=== PATIENT | male | born 1960 | race Caucasian/White ===

== ENCOUNTER 2022-06-11 01:44 | Day surgery (SDC) | payer BC, SELFPAY ==
--- NOTE | 2022-05-09 17:05 | SUR.PREOP ---
Addendum entered by Hailey Franklin RN 06/07/22 13:32: New time and date given to patient Tello and all instructions repeated since case was rescheduled. Patient states Dr Perry had him stop meloxicam 06/03/22 and he will stop multivitamins 06/08/22 aware day of surgery to stop liquids at 8am and will be notified 06/08 in afternoon if time changes. Original Note: Report to the Outpatient Waiting Room, entrance under the [facility] located off [facility], at time 0600 on date 05/14/22. OR Time: 0730. - You and your visitor will be asked a series of questions to screen for COVID 19 for your protection. - Only one visitor is allowed at this time. - The patient visitor is requested to leave or wait in car when not with patient. - A mask is required within the hospital. Patients may have clear liquids (water, carbonated beverages, clear teas, apple juice) until 3 hours prior to surgery with a maximum of 20 ounces. - NO CLEAR LIQUIDS AFTER 0430 - No food from midnight until time of surgery - Infants may have breast milk until 4 hours before surgery, infant formula 6 hours prior to surgery. - Children will be allowed to drink immediately following surgery. If applicable, please bring a bottle or sippy cup to assist with drinking. Juice, water, soda, and popsicles are readily available. For infants on formula, please bring formula the day of surgery. Pacifiers are allowed. Take the following medications with a SIP of water the morning of surgery: OKAY TO USE EYE DROPS PRESCRIBED Medications to discontinue per physician PT STOPPED MELOXICAM 05/06/[address] SARMIENTO, STOP MULTIVITAMIN & SUPPLEMENTS 05/11/22 Please no make-up, nail bulgarian, hairspray, perfume, deodorant, or body powder the day of surgery. No jewelry (including any body piercings) or valuables the day of surgery, leave them at home. Please take a shower or bath the night before, or the morning of, surgery with an antibacterial soap. Wear comfortable, loose fitting clothing. Children are encouraged to wear pajamas. - Jewelry must be removed prior to entering the operating room. Rings and piercings that are not removed may be cut off. - The hospital will not accept responsibility for valuables. - Please leave all valuables, including medications, at home the day of surgery. If you are going home after surgery, a licensed truck driver supervisor must drive you home. - NO public transportation without another adult. - We recommend that an adult stay with you for 24 hours following discharge. - We also recommend that you do not drive, make important decision, drink alcoholic beverages, or take any drugs that were not prescribed by your health care provider for at least 24 hours after your discharge time. For Pediatric surgeries, we recommend two adults accompany the child home (only one inside the building at this time). Follow any additional instructions given to you from your surgeon. If you or anyone in your household have experienced Covid symptoms in the past week, please notify your surgeon or the nurse liaison at the phone number below for possible testing. Telephone instructions given to TELLO NAVA and asked if any additional questions and then verbalized understanding. Patient advised to call surgeon office or pre surgery nurse liaison [phone] if any additional questions.
[2022-05-09 17:14] VITALS: BMI 29.0
[2022-06-07 13:14] VITALS: BMI 28.7
[2022-06-11] VITALS (9 sets, daily range): BP systolic 150–183; BP diastolic 88–102; PULSE 51–82; RESP 12–16; TEMP 36.4–36.5; O2SAT 100
[2022-06-11] MEDS: ACETAMINOPHEN 500 MG TABLET 1000 MG PO (09:24)
--- NOTE | 2022-06-11 09:49 | WPDANESEPPF ---
Anes - Initial Pre Proc Eval Procedure: Operation Date: 06/11/22 11:00 Proposed Procedures p Bilateral Tonsillectomy - Roel Amador MD Date/Time: 06/11/22 09:49 Surgeon: Roel Amador MD Pre Op Diagnosis: Chronic Tonsillitis Patient Data Age: 62 Gender: M Height: 1.78 m Weight: 90.9 kg Allergies Allergy/AdvReac Type Severity Reaction Status Date / Time No Known Allergies Allergy Mild Verified 06/07/22 13:14 Home Medications Medication Instructions Recorded Confirmed Type brinzolamide 1 %-brimonidine 0.2 % 1 drp EACH EYE BID 05/09/22 06/07/22 History eye drops,suspension (Simbrinza) latanoprost 0.005 % eye drops 1 drp EACH EYE HS 05/09/22 06/07/22 History meloxicam 7.5 mg tablet 7.5 mg PO DAILY 05/09/22 06/07/22 History multivitamin 1 tablet PO DAILY 05/09/22 06/07/22 History omeprazole 20 mg capsule,delayed 20 mg PO DAILY 05/09/22 06/07/22 History release tamsulosin 0.4 mg capsule 0.4 mg PO DAILY 05/09/22 06/07/22 History timolol maleate 0.5 % eye drops 1 drp EACH EYE BID 05/09/22 06/07/22 History Patient hx anesthesia problems: none Family hx anesthesia problems: none Results Review: All pre-operative results and documents have been reviewed as part of the pre-operative evaluation. [facility] Past Medical History Medical History (Updated 06/11/22 @ 09:49 by Mayo Jordan MD) ARACELI (obstructive sleep apnea) Overweight Surgical History Surgical History (Updated 06/11/22 @ 09:49 by Mayo Jordan MD) H/O colonoscopy Social History Social History Smoking status: Never smoker Substance use: never Substance use type: does not use Living arrangements: with family Spiritual care concerns: No Anes - Eval Final PreProcedure Day of Procedure 06/11/22 09:49 Patient weight: overweight Heart: regular rate and rhythm Lungs: clear to auscultation Airway: Mallampati scale class II Neurological: alert and oriented Last oral intake: >/= 8 hours ASA classification: III Emergent: no Anesthetic plan: proceed Anesthesia type and monitoring: general ETT and standard monitoring Results Review: All pre-operative results and documents have been reviewed as part of the pre-operative evaluation. Informed Consent: The patient's anesthetic plan and its attendant risks and benefits were discussed with the patient/family/POA. Questions were solicited and answers provided to the satisfaction of the patient/family/POA.
--- NOTE | 2022-06-11 09:51 | PM.IMHP ---
H&P: HPI History of Present Illness Date/Time: 06/11/22 09:51 Chief Complaint: Chronic tonsillitis Narrative: hx of peritonsillar abscess, chronic tonsillitis Review of Systems Review of Systems: All systems reviewed & are unremarkable except as noted in HPI and below PMFSH Past Medical History Medical History ARACELI (obstructive sleep apnea) Overweight Surgical History Surgical History H/O colonoscopy Social History Social History Smoking status: Never smoker Substance use: never Substance use type: does not use Living arrangements: with family Spiritual care concerns: No Meds Home Medications and Allergies Home Medications Medication Instructions Recorded Confirmed Type brinzolamide 1 %-brimonidine 0.2 % 1 drp EACH EYE BID 05/09/22 06/07/22 History eye drops,suspension (Simbrinza) latanoprost 0.005 % eye drops 1 drp EACH EYE HS 05/09/22 06/07/22 History meloxicam 7.5 mg tablet 7.5 mg PO DAILY 05/09/22 06/07/22 History multivitamin 1 tablet PO DAILY 05/09/22 06/07/22 History omeprazole 20 mg capsule,delayed 20 mg PO DAILY 05/09/22 06/07/22 History release tamsulosin 0.4 mg capsule 0.4 mg PO DAILY 05/09/22 06/07/22 History timolol maleate 0.5 % eye drops 1 drp EACH EYE BID 05/09/22 06/07/22 History Allergies Allergy/AdvReac Type Severity Reaction Status Date / Time No Known Allergies Allergy Mild Verified 06/07/22 13:14 Exam Narrative: Chronic tonsil inflammation, hx of peritonsillar abscess Assessment and Plan Assessment and plan (1) Chronic tonsillitis: Code(s): J35.01 - Chronic tonsillitis Status: Acute Plan Tello has chronic tonsillitis, hx of peritonsillar abscess, here for tonsillectomy. r/b/a reviewed all questions answered and he agrees to proceed. refer to outpt H&P for full details.
--- NOTE | 2022-06-11 09:54 | WPDHPUPDATE1 ---
History and Physical Update Update Date/Time: 06/11/22 09:54 History and Physical has been reviewed, including an updated exam of the patient. There are NO changes in the patient's condition. Risks, benefits, and alternatives have been discussed and questions answered. Patient agrees to proceed with procedure.
[2022-06-11] MEDS: LACTATED RINGERS 1,000 ML 30 ML IV CONT (10:00)
--- NOTE | 2022-06-11 10:46 | W.PM.PROC2 ---
Procedure Note - Detailed Date of Procedure 06/11/22 Pre-op Diagnosis Chronic Tonsillitis Post-op Diagnosis Same Procedure Performed tonsillectomy Surgeon Roel Amador MD Anesthesia General Indications chronic tonsillitis Findings Bilateral tonsil stones, 2+ Description of Procedure DESCRIPTION OF PROCEDURE: On the date of procedure the patient was met in the preoperative area and risk and benefits of the procedure reviewed with the patient who elected to proceed with surgery. The patient was brought back to the room by the anesthesia team and placed under general endotracheal anesthesia. Once an adequate plane of anesthesia was obtained a timeout was performed to assure the patient identification the procedure to be performed were correct. The patient was then prepped and draped in the normal fashion for tonsillectomy. A head wrap and shoulder roll were placed. A Sunitha-Markel retractor was inserted into the patient's oral cavity and the patient was suspended from the Sawyer stand. The left tonsil grasped with a curved tonsillar tenaculum retracted medially and removed with electrocautery set on 15 standard. After the tonsil was removed the tonsillar fossa was inspected and no bleeding was noted. The right tonsil was then grasped with a curved tenaculum and retracted medially and removed in an identical manner. The tonsillar fossa was inspected and hemostasis was obtained with suction bovie electrocautery. The patient was taken out of suspension and then placed back into suspension. The tonsillar fossas were once again inspected and no bleeding was noted. A tonsil sponge was used to gently abrade the area and no bleeding was noted. The patient was removed from suspension. The Sunitha-Markel retractor was removed from the patient's oral cavity. There was no damage to the patient's teeth or lips. Care of the patient was then returned to anesthesia who extubated in the operating room and transferred the patient to recovery in stable condition without complication. Estimated Blood Loss 20 Drains No Packing No Pathology Yes (right and left tonsil) Complications No immediate complications Condition Stable Disposition PACU
== END 2022-06-11 12:39 | disposition home or self-care (01) ==
PROVIDERS: PCP Family Medicine; Visit Provider Otolaryngology
PROC: (CPT 42826; principal; 2022-06-11 11:00)
DX: J35.01 Chronic tonsillitis (principal); G47.33 Obstructive sleep apnea (adult) (pediatric)
CPT/HCPCS: 42826; 88304; A9270; J0330; J1100; J1170; J2250; J2405; J2704; J3010; J7120

== ENCOUNTER 2024-03-19 09:35 | Outpatient (CLI) | payer MEDICARE, SELFPAY ==
--- NOTE | ~2024-03-19 | MR_ITS ---
EXAMINATION: MR ankle LT wo con DATE: 03/19/2024 12:07 INDICATION: Left Achilles tendon strain TECHNIQUE: Magnetic resonance imaging (MRI) of the left ankle was performed without intravenous contr ast. Sequences included sagittal, coronal, and axial proton-density weighted fast spin echo without a nd with fat saturation. COMPARISON: None. FINDINGS: Medial ankle ligaments: Deep and superficial deltoid ligaments as well as the spring ligament are normal. Lateral ankle ligaments: The anterior and posterior inferior tibiofibular ligaments are normal. The anterior talofibular, calc aneofibular and posterior talofibular ligaments are normal. Tendons: Moderate Achilles tendinosis with fusiform thickening and increased signal. There is focal architectu ral distortion consistent with a partial-thickness tear located approximately 6 cm above the calcanea l insertion appears to involve approximately one fourth of the cross-sectional area of the tendon. Th e peroneus longus and brevis tendons are normal. The tibialis anterior and extensor hallucis longus a nd extensor digitorum longus tendons are normal. The tibialis posterior, flexor digitorum longus and flexor hallucis longus tendons are normal. Plantar fascia: Mild thickening and increased signal of the central component of the plantar aponeurosis at its calca melvin origin where there is also a small enthesophyte consistent with mild chronic enthesopathy. No as sociated bone or surrounding soft tissue edema to suggest acute plantar fasciitis. Bones/other: Bone alignment is normal. Mild osteoarthritis at the talonavicular articulation with deep chondral ul ceration with subtle underlying cortical irregularity and subarticular edema-like signal change at th e inferolateral aspect of the head of the talus. Additional mild osteoarthritis of the second-fourth tarsal metatarsal joints. No fracture or pathologic marrow replacing process. Fluid: Likely reactive subcutaneous edema about the distal calf and posterior ankle. Visualized amount fluid in the joint spaces. No other abnormal fluid collections identified. IMPRESSION: 1. Moderate Achilles tendinosis with mild partial-thickness tear. 2. 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 IMPRESSION: 1. Moderate Achilles tendinosis with mild partial-thickness tear. 2. 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
--- NOTE | ~2024-03-19 | MR_ITS ---
EXAMINATION: MR pelvis wo/w con DATE: 03/19/2024 12:18 INDICATION: Malignant neoplasm of prostate. TECHNIQUE: Magnetic resonance imaging (MRI) of the pelvis was performed without and with 19 mL MultiH ance intravenous contrast. COMPARISON: None. FINDINGS: There are bilateral inguinal hernias containing fat. There are changes of prostatectomy. There are no pathologically enlarged lymph nodes. There is no free intraperitoneal fluid. There is no osseous met astatic disease. IMPRESSION: 1. Prostatectomy. Reviewed, dictated and finalized at location A. IMPRESSION: 1. Prostatectomy.
== END 2024-03-19 09:36 | disposition home or self-care (01) ==
PROVIDERS: PCP Family Medicine; Referring Provider Orthopaedic Surgery; Visit Provider Radiology Radiation Oncology
DX: C61 Malignant neoplasm of prostate (principal); S86.012A Strain of left Achilles tendon, initial encounter; X58.XXXA Exposure to other specified factors, initial encounter
CPT/HCPCS: 72197; 73721; A9577